=== PATIENT | female | born 1950 | race Caucasian/White ===

== ENCOUNTER 2020-10-01 14:46 | Emergency (ER) | payer OTHER ==
[2020-10-01 16:03] LABS: BASOPHIL 0.7 % (0-2); EOSINOPHIL 1.7 % (0-7); HCT 42.3 % (37.0-47.0); HGB 13.8 g/dl (12.5-16.0); LYMPHOCYTE 17.9 % (15-48); MCHC 32.6 g/dL (32.0-36.0); MCV 85.8 fL (78.0-100.0); MONOCYTE 6.6 % (0-12); MPV 9.4 fL (6.0-9.5); NEUTROPHIL 72.8 % (41-80); NRBC 0; PLT 280 K/uL (150-400); RBC 4.93 M/uL (4.20-5.40); RDW 13.4 % (11.5-14.0); WBC 5.8 K/uL (4.0-10.5)
[2020-10-01 16:06] LABS: BILIRUBIN NEGATIVE (NEGATIVE); BLOOD TRACE-INTACT Ery/uL (NEGATIVE); CLARITY CLEAR (CLEAR); COLOR YELLOW (YELLOW); GLUCOSE (U) NORMAL (NORMAL); LEUKOCYTES NEGATIVE Leu/uL (NEGATIVE); NITRITE NEGATIVE (NEGATIVE); PROTEIN TRACE (LOW) mg/dL (NEGATIVE); SPECIFIC GRAVITY >=1.030 (1.001-1.030); UROBILINOGEN 0.2 mg/dL (0.2-1.0); pH 5.5 (5.0-9.0)
[2020-10-01 16:13] LABS: ALBUMIN 3.6 g/dL (3.4-5.0); BILIRUBIN - TOTAL 0.3 mg/dL (0.2-1.0); BUN/CREAT RATIO (CALC) 26.2 RATIO; CREATININE 0.84 mg/dL (0.51-0.95); POTASSIUM 3.9 mmol/L (3.5-5.1); TOTAL PROTEIN 7.6 g/dL (6.4-8.2)
[2020-10-01 16:16] LABS: URINARY WBC RARE
== END 2020-10-01 16:27 | disposition home or self-care (01) ==
LOC: FER 14:46
PROVIDERS: Emergency Medicine
DX: F03.90 Unspecified dementia, unspecified severity, without behavioral disturbance, psychotic disturbance, mood disturbance, and anxiety (principal)
CPT/HCPCS: 36415; 80053; 81001; 85025; 99285